=== PATIENT | male | born 1990 | race Asian ===

== ENCOUNTER 2017-06-11 14:39 | Emergency (ER) | payer BC ==
[~2017-06-11] VITALS: Ht 167.6 cm; Wt 90.4 kg
[2017-06-11 14:47] VITALS: BP 143/88; Ht 167.6 cm; Wt 90.4 kg
== END 2017-06-11 15:58 | disposition home or self-care (01) ==
LOC: ED 14:39
DX: S91.342A Puncture wound with foreign body, left foot, initial encounter (principal); X58.XXXA Exposure to other specified factors, initial encounter; Y93.89 Activity, other specified; Y92.89 Other specified places as the place of occurrence of the external cause; Y99.8 Other external cause status